=== PATIENT | female | born 1970 | race Caucasian/White ===

== ENCOUNTER 2019-09-04 03:53 | Emergency (ER) | payer BC ==
[~2019-09-04] VITALS: Ht 167.6 cm; Wt 77.1 kg
[2019-09-04 03:53] VITALS: BP 142/94
[2019-09-04] MEDS ORDERED: LIDOCAINE VISCOUS 2% UD 15 ML UDC ONE (04:33)
[2019-09-04] MEDS ORDERED: LIDOCAINE VISCOUS 2% UD 15 ML UDC MM ONE (05:00)
--- NOTE | 2019-09-04 05:24 | NUR ---
Patient discharged to home in stable condition. Written and verbal after care instructions given. Patient verbalizes understanding of instruction. ambulatory with a steady gait
== END 2019-09-04 05:25 | disposition home or self-care (01) ==
LOC: ER 03:57
DX: S83.8X2A Sprain of other specified parts of left knee, initial encounter (principal); F17.200 Nicotine dependence, unspecified, uncomplicated; W18.39XA Other fall on same level, initial encounter; Y93.K1 Activity, walking an animal; Y92.89 Other specified places as the place of occurrence of the external cause; Y99.8 Other external cause status
CPT/HCPCS: 73564-TC